=== PATIENT | male | born 1995 | race Caucasian/White ===

== ENCOUNTER → 2017-10-12 | Outpatient (CLI) | payer BC ==
--- NOTE | 2017-10-12 20:36 | XR ---
EXAMINATION TYPE: XR lumbar spine 2 or 3V DATE OF EXAM: 10/12/2017 COMPARISON: NONE HISTORY: Low back pain TECHNIQUE: 3 views FINDINGS: The lumbar vertebra have normal alignment. Posterior elements are intact. Disc spaces are f airly normal. Sacroiliac joints appear normal. IMPRESSION: Normal lumbar spine exam.
== END | disposition home or self-care (01) ==
LOC: LABMAIN 20:14 → PEDOP 20:14
PROVIDERS: ATTEND Family Medicine
DX: M54.5 Low back pain (principal); G89.29 Other chronic pain; R50.9 Fever, unspecified
CPT/HCPCS: 72100; 87502; 99212

== ENCOUNTER 2018-07-22 15:20 | Emergency (ER) | payer BC ==
[2018-07-22 15:29] VITALS: RESP 18
[2018-07-22] MEDS ORDERED: SODIUM CHLORIDE 0.9% 500 ML 500 ML IV STA (16:22)
--- NOTE | 2018-07-22 16:52 | XR ---
EXAMINATION TYPE: XR chest 2V DATE OF EXAM: 07/22/2018 COMPARISON: None HISTORY: Congestion and chest, pain and vomiting TECHNIQUE: Frontal and lateral views of the chest are obtained. FINDINGS: There is no focal air space opacity, pleural effusion, or pneumothorax seen. The cardiac silhouette size is within normal limits. The osseous structures are intact. IMPRESSION: No acute cardiopulmonary process.
--- NOTE | 2018-07-22 17:04 | ED ---
General Adult HPI - General Chief complaint: Nausea/Vomiting/Diarrhea Stated complaint: vomiting Source: patient, RN notes reviewed, old records reviewed Mode of arrival: ambulatory Limitations: no limitations - History of Present Illness Initial comments: 22-year-old male patient with no pertinent past medical history presents to ED after having one episode of nausea and emesis yesterday. Patient was at work yesterday, had 1 episode of emesis, was sent home. Patient presents to ER to receive documentation to return to work. Patient has had 2 days of nonproductive cough, sinus congestion. Patient denies any other symptoms. Patient denies chest pain, shortness of breath, abdominal pain, fever/chills. Systemic: Pt denies fatigue, myalgia, fever/chills, rash. Pt denies weakness, night sweats, weight loss. Neuro: Pt denies headache, visual disturbances, syncope or pre-syncope. HEENT: Pt denies ocular discharge or irritation, otalgia, rhinorrhea, pharyngitis or notable lymphadenopathy. Cardiopulmonary: Pt denies chest pain, SOB, heart palpitations, dyspnea on exertion. Abdominal/GI: Pt denies abdominal pain, n/v/d. : Pt denies dysuria, burning w/ urination, frequency/urgency. Denies new onset urinary or bowel incontinence. MSK: Pt denies myalgia, loss of strength or function in extremities. Neuro: Pt denies new onset weakness, paresthesias. - Related Data Previous Rx's Medication Instructions Recorded Fluticasone Propionate [Flonase 1 - 2 spray EA NOSTRIL DAILY 5 07/22/18 Allergy Relief] Days ml Allergies Allergy/AdvReac Type Severity Reaction Status Date / Time No Known Allergies Allergy Verified 07/22/18 15:26 Review of Systems ROS Statement: Those systems with pertinent positive or pertinent negative responses have been documented in the HPI. ROS Other: All systems not noted in ROS Statement are negative. Past Medical History Past Medical History: No Reported History History of Any Multi-Drug Resistant Organisms: None Reported Past Surgical History: No Surgical Hx Reported Past Psychological History: No Psychological Hx Reported Smoking Status: Current every day smoker Past Alcohol Use History: None Reported Past Drug Use History: Marijuana General Exam - General Exam Comments Initial Comments: Constitutional: NAD, AOX3, Pt has pleasant affect. HEENT: NC/AT, trachea midline, neck supple, no lymphadenopathy. Posterior pharynx non erythematous, without exudates. External ears appear normal, without discharge. Mucous membranes moist. Eyes PERRLA, EOM intact. There is no scleral icterus. No pallor noted. No maxillary or frontal sinus pressure reproducible upon palpation. Cardiopulmonary: RRR, no murmurs, rubs or gallops, no JVD noted. Lungs CTAB in anterior and posterior benavides. No peripheral edema. Abdominal exam: Abdomen soft and non-distended. Abdomen non-tender to palpation in all 4 quadrants. Bowel sounds active in LLQ. No hepatosplenomegaly. No ecchymosis Neuro: CN II-XII grossly intact. No nuchal rigidity. MSK: No posterior calf tenderness bilaterally, homans sign negative bilaterally. Posterior tibialis and radial pulse +2 bilaterally. Limitations: no limitations Course Vital Signs 07/22/18 07/22/18 15:26 17:33 Temperature 97.6 F 98.5 F Pulse Rate 90 73 Respiratory 18 18 Rate Blood Pressure 137/87 140/82 O2 Sat by Pulse 100 100 Oximetry Medical Decision Making - Medical Decision Making 31-year-old male patient presented to ED after having one episode of emesis yesterday, in order to receive documentation to return to work. Patient additionally had 2 days of sinus congestion, nonproductive cough. Patient is afebrile, vital signs are stable in ER. Physical exam did not display any acute pathology. Chest x-ray did not display any acute process. Patient prescribed Flonase to decrease sinus congestion. Patient to follow primary care provider in 1-2 days. Patient to return to ED if any new signs or symptoms develop including worsening cough, fever chills, new nausea vomiting diarrhea, abdominal pain, chest pain, shortness of breath, any other new symptoms. Case discussed with Dr. Rojas. Disposition Clinical Impression: Sinusitis Disposition: HOME SELF-CARE Condition: Good Instructions: Sinusitis (ED) Additional Instructions: Patient to adhere to previously discussed treatment plan and will take medication(s) as directed. Patient to follow up with PCP in 1-2 days. Patient to return to ED if symptoms do not improve. Prescriptions: Fluticasone Propionate [Flonase Allergy Relief] 1 - 2 spray EA NOSTRIL DAILY 5 Days ml Is patient prescribed a controlled substance at d/c from ED?: No Referrals: None,Stated [Primary Care Provider] - 1-2 days [facility] [NON-STAFF] - 1-2 days Time of Disposition: 17:04
[2018-07-22 17:34] VITALS: BP 140/82; PULSE 73; TEMP 98.5
== END 2018-07-22 17:33 | disposition home or self-care (01) ==
LOC: EC 15:20
DX: J32.9 Chronic sinusitis, unspecified (principal); F17.200 Nicotine dependence, unspecified, uncomplicated
CPT/HCPCS: 71046; 99284

== ENCOUNTER 2018-10-20 14:12 | Emergency (ER) | payer BC ==
[2018-10-20 14:28] VITALS: BP 128/68
--- NOTE | 2018-10-20 15:35 | ED ---
URI HPI - General Chief Complaint: Upper Respiratory Infection Stated Complaint: runny nose, fever,cough Time Seen by Provider: 10/20/18 14:54 Source: patient Mode of arrival: ambulatory Limitations: no limitations - History of Present Illness Initial Comments: 23-year-old male presenting for congestion fever and cough. Patient states that the symptoms began today, he denies any difficulty breathing or swallowing. Patient states he is in mild sore throat. Patient states that he has no chest pain, shortness of breath, dyspnea on exertion, nausea vomiting diarrhea abdominal pain, headache neck stiffness or any other symptoms. Patient states he feels like he has a upper respiratory infection. Remaining review of system negative, Patient denies any recent back pain, abdominal pain, nausea,numbness or tingling, dysuria or hematuria, constipation, headaches or visual changes, or any other complaints. Patient vaccinated. Upon arrival patient appears well. Obvious upper respiratory symptoms. - Related Data Previous Rx's Medication Instructions Recorded Fluticasone Propionate [Flonase 1 - 2 spray EA NOSTRIL DAILY 5 07/22/18 Allergy Relief] Days ml Azithromycin [Zithromax Z-pack] 0 mg PO DIRECTED #6 tab 10/20/18 Oxymetazoline 0.05% Nasl [place] 2 spray EA NOSTRIL BID 4 Days #1 10/20/18 [Afrin 0.05% Nasal [place]] bottle Allergies Allergy/AdvReac Type Severity Reaction Status Date / Time No Known Allergies Allergy Verified 10/20/18 14:28 Review of Systems ROS Statement: Those systems with pertinent positive or pertinent negative responses have been documented in the HPI. ROS Other: All systems not noted in ROS Statement are negative. Past Medical History Past Medical History: No Reported History History of Any Multi-Drug Resistant Organisms: None Reported Past Surgical History: No Surgical Hx Reported Past Psychological History: No Psychological Hx Reported Smoking Status: Former smoker Past Alcohol Use History: None Reported Past Drug Use History: Marijuana General Exam - General Exam Comments Initial Comments: General: The patient is awake and alert, in no distress, and does not appear acutely ill. Eye: Pupils are equal, round and reactive to light, extra-ocular movements are intact. No nystagmus. There is normal conjunctiva bilaterally. No signs of icterus. Ears, nose, mouth and throat: There are moist mucous membranes and no oral lesions. Nasal congestion. Oropharynx mother erythematous with tonsillar enlargement or exudate lesions. Uvula midline. Tympanic membranes within normal limits. Extraocular canals within normal limits. No anterior cervical lymph node T. No hot potato voice. No tripoding. No drooling. Neck: The neck is supple, there is no tenderness or JVD. Cardiovascular: There is a regular rate and rhythm. No murmur, rub or gallop is appreciated. Respiratory: Lungs are clear to auscultation, respirations are non-labored, breath sounds are equal. No wheezes, stridor, rales, or rhonchi. No areas concerning for focal consolidation. Lung sounds present in all benavides no diminished sounds. Gastrointestinal: Soft, non-distended, non-tender abdomen without masses or organomegaly noted. There is no rebound or guarding present. Bowel sounds are unremarkable. Musculoskeletal: Normal ROM, no tenderness. Strength 5/5. Sensation intact. Radial pulses equal bilaterally 2+. Neurological: A&O x 3. CN II-XII intact, There are no obvious motor or sensory deficits. Coordination appears grossly intact. Speech is normal. Skin: Skin is warm and dry and no rashes or lesions are noted. Psychiatric: Cooperative, appropriate mood & affect, normal judgment. Limitations: no limitations Course Vital Signs 10/20/18 10/20/18 14:25 15:46 Temperature 98.3 F 98.5 F Pulse Rate 94 80 Respiratory 18 15 Rate Blood Pressure 128/68 O2 Sat by Pulse 99 100 Oximetry Medical Decision Making - Medical Decision Making Well-appearing 23-year-old male. Patient febrile upon arrival. Patient admits to fever. Patient has upper respiratory symptoms. No findings on physical examination concern for consolidation. Implanted testing negative. Oropharynx not concerning for stroke for this at this time. She'll be treated with azithromycin. Patient discharged stable condition appearing well. Discussed case with him rather Dr. Ramirez prior to patient's discharge. Patient's critical discharge plan. Patient refused a chest x-ray today stating he does not feel like he has pneumonia. - Lab Data Lab Results 10/20/18 Range/Units 15:06 Influenza Type A RNA Not Detected (Not Detectd) Influenza Type B (PCR) Not Detected (Not Detectd) Disposition Clinical Impression: Upper respiratory infection Disposition: HOME SELF-CARE Instructions (If sedation given, give patient instructions): Upper Respiratory Infection (ED) Additional Instructions: Please use medication as discussed. Please follow-up with family doctor in the next 2 days. Please return to emergency room if the symptoms increase or worsen or for any other concerns. Prescriptions: Oxymetazoline 0.05% Nasl [place] [Afrin 0.05% Nasal [place]] 2 spray EA NOSTRIL BID 4 Days #1 bottle Azithromycin [Zithromax Z-pack] 0 mg PO DIRECTED #6 tab Is patient prescribed a controlled substance at d/c from ED?: No Referrals: Aviva Mann MD [Primary Care Provider] - 1-2 days Time of Disposition: 15:35
[2018-10-20 15:47] VITALS: PULSE 80; RESP 15; TEMP 98.5
== END 2018-10-20 15:47 | disposition home or self-care (01) ==
LOC: EC 14:12
DX: J06.9 Acute upper respiratory infection, unspecified (principal); Z53.29 Procedure and treatment not carried out because of patient's decision for other reasons; Z87.891 Personal history of nicotine dependence
CPT/HCPCS: 87502; 99283

== ENCOUNTER → 2020-05-02 | Outpatient (CLI) | payer BC | END | disposition home or self-care (01) | LOC: LABWHC1 08:45 | PROVIDERS: ATTEND Emergency Medicine | DX: Z20.828 Contact with and (suspected) exposure to other viral communicable diseases (principal) | CPT/HCPCS: U0003; C9803 ==